=== PATIENT | male | born 1950 | race Caucasian/White ===

== ENCOUNTER 2024-06-05 09:44 | Observation (INO) ==
[~2024-06-05 09:44] MED LIST: HYDROmorphone 1 MG/1 ML SYRINGE IV PRN; Lidocaine 2% PF 5 ML VIAL ONE; Midazolam 2 mg/2 ml VIAL 1 mg/ml 2 ml VIAL (2 mg) ONE; Naloxone 0.4 mg VIAL 0.4 mg/ml 1 ml VIAL IV PRN; Ondansetron 4 mg VIAL 2 MG/ML 2 ml VIAL IV PRN; Propofol 10 MG/ML 20 ML BTL ONE; Rocuronium 50 mg VIAL 10 mg/ml 5 ml VIAL (50 mg) ONE; fentaNYL 100 mcg/2 ml 50 MCG/ML VIAL IV PRN; fentaNYL 100 mcg/2 ml 50 MCG/ML VIAL ONE; fentaNYL 250 mcg/5 ml 50 MCG/ML 5 ml VIAL (250 MCG) ONE
[2024-06-05 10:21] LABS: Rapid COVID-19 Molecular Undetected (Undetected)
[2024-06-05] MEDS: Buffered Lidocaine 1% SYRIN 1 ml INTRADERM ONE (11:07)
[2024-06-05] MEDS: Lactated Ringers 1000 ml BAG 1,000 ML IV SCH (11:07)
[2024-06-05] MEDS: Ampicillin ADVAN 2 GM in NS 0.9% 100 ML 100 ML IVPB ONE (11:08)
[2024-06-05] MEDS: NS 0.9% IVPB ONE (11:08)
[2024-06-05] MEDS: GENTAMICIN ADULT IVPB ONE (11:08)
[2024-06-05] MEDS ORDERED: Ondansetron 4 mg VIAL 2 MG/ML 2 ml VIAL IV PRN (12:23)
[2024-06-05] MEDS ORDERED: Ondansetron 4 mg VIAL 2 MG/ML 2 ml VIAL ONE (13:17)
[2024-06-05] MEDS ORDERED: Dexamethasone IV 4 MG/ML VIAL 1 ml VIAL ONE (13:17)
[2024-06-05] MEDS ORDERED: Phenylephrine 40 mcg/mL 10mL (400mcg) SYRINGE ONE (14:26)
[2024-06-05] MEDS ORDERED: Propofol 10 MG/ML 20 ML BTL ONE (14:27)
[2024-06-05] MEDS ORDERED: Furosemide 20 mg/2 ml IV VIAL ONE (14:52)
[2024-06-05] MEDS ORDERED: Sodium Chloride 0.9% 20 ML ONE (15:38)
[2024-06-05] MEDS: NS 0.9% 1000 ml BAG 1,000 ML IV SCH (16:30)
[2024-06-05] MEDS: Scopolamine 1 mg/72hr PATCH TRANSDERM ONE (16:38)
[2024-06-05] MEDS: Acetaminophen IV 1 GM/100ML 1,000 MG/100 ML BAG IV ONE (16:38)
[2024-06-05] MEDS: Neomycin/Polym/Bacit TOP OINT 15 GM TOPICAL SCH (16:56)
[2024-06-05] MEDS: Magnesium Hydroxide LIQ 30 ML UDC PO SCH (23:55)
== END 2024-06-06 10:50 | disposition home or self-care (01) ==
LOC: SSU 09:44 → OR 09:44
PROVIDERS: ADMIT Urology; ATTEND Urology